=== PATIENT | male | born 1965 | race Caucasian/White ===

== ENCOUNTER 2018-01-21 06:51 | Day surgery (SDC) | payer BC ==
[~2018-01-21] VITALS: Ht 172.7 cm; Wt 82.7 kg
[~2018-01-21 06:51] MED LIST: ASCO500 PO; ASPI81TA11 PO; ATOR20TA PO; CO Q60CA2 PO; NORC7.5T PO; TAB-TAB PO
[2018-01-21 07:22] VITALS: BP 154/100; PULSE 88; RESP 20; TEMP 98.5; O2SAT 97
[2018-01-21] MEDS ORDERED: LACTATED RINGER'S 1000 ML INJ 1,000 ML IV SCH (07:30)
[2018-01-21] MEDS ORDERED: DIAZEPAM 5 MG TAB PO SCH (07:30)
[2018-01-21 07:43] LABS: AUTOMATED NEUTROPHIL # 3.4 TH/MM3 (1.8-7.7); BASOPHIL % 0.6 % (0.0-2.0); EOSINOPHIL % 0.8 % (0.0-4.0); HEMATOCRIT 45.3 % (39.0-51.0); HEMOGLOBIN 15.6 GM/DL (13.0-17.0); LYMPHOCYTE # 1.5 TH/MM3 (1.0-4.8); MEAN CELL VOLUME 99.5 FL (80.0-100.0); MEAN CORPUSCULAR HEMOGLOBIN 34.3 PG (27.0-34.0); MEAN CORPUSCULAR HGB CONC 34.5 % (32.0-36.0); MEAN PLATELET VOLUME 9.3 FL (7.0-11.0); MONO % 8.8 % (0.0-8.0); MONOCYTE # 0.5 TH/MM3 (0-0.9); NEUT % 62.8 % (16.0-70.0); PLATELET COUNT 149 TH/MM3 (150-450); RED BLOOD COUNT 4.55 MIL/MM3 (4.50-5.90); RED CELL DISTRIBUTION WIDTH 13.4 % (11.6-17.2); WHITE BLOOD COUNT 5.5 TH/MM3 (4.0-11.0)
[2018-01-21 07:53] LABS: INTERNATIONAL NORMALIZED RATIO 1.1 RATIO; PROTHROMBIN TIME - PATIENT 10.7 SEC (9.8-11.6)
[2018-01-21 08:01] LABS: BICARBONATE 24.1 MEQ/L (21.0-32.0); CALCIUM 9.5 MG/DL (8.5-10.1); CREATININE 0.82 MG/DL (0.60-1.30)
[2018-01-21] MEDS ORDERED: IOHEXOL 180 MG/ML 20 ML VIAL (for RAD DIAG) IT ONE (08:15)
--- NOTE | 2018-01-21 08:26 | PD.RAD ---
Post Procedure Progress Note Pre Procedure Diagnosis: (1) Back pain Post Procedure Diagnosis: (1) Back pain Procedure Date: January 21, 2018 Supervising Radiologist: Calixto Wolff Proceduralist/Assist: Gisel Erwin RT(R)(), RT Yamil(R)(CV) Anesthesia: Local Plan of Activity Patient to Unit: Other (CT) Patient Condition: Good See PACS Report for procedural detail/treatment Spinal Procedure Myelogram L3 Puncture Time: 08:15 Findings: Mild spinal stenosis at L3-4 and L4-5. CT to follow. Calixto Wolff MD January 21, 2018 08:26
[2018-01-21] MEDS ORDERED: ACETAMINOPHEN 325 MG TAB PO PRN (08:30)
[2018-01-21] MEDS ORDERED: ONDANSETRON HCL 4 MG/2 ML VIAL IV PUSH PRN (08:30)
[2018-01-21 09:20] VITALS: BP 135/72; PULSE 80; RESP 18; TEMP 98.1; O2SAT 95
--- NOTE | 2018-01-21 09:30 | RADRPT ---
EXAM DATE/TIME: 01/21/2018 08:56 [facility] COMPARISON: SPINE LUMBAR LATERAL ONLY, October 12, 2015, 8:17. INDICATIONS : Post myelogram. RADIATION DOSE: 21.89 CTDIvol (mGy) CT of thelumbar spine was performed post myelogram. MEDICAL HISTORY : None SURGICAL HISTORY : L4-L5 Laminectomy. ENCOUNTER: Initial ACUITY: 1 day PAIN SCALE: 0/10 LOCATION: lumbar spine. TECHNIQUE: Volumetric scanning of the lumbar spine was performed. Multiplanar reconstructions in the sagittal, coronal and oblique axial planes were performed. Using automated exposure control and adjustment of the mA and/or kV according to patient size, radiation dose was kept as low as reasonably achievable t o obtain optimal diagnostic quality images. DICOM format image data is available electronically for review and comparison. FINDINGS: There is excellent opacification of the thecal sac. T12-L1: The thecal sac has a normal diameter. No evidence of disc bulge or protrusion. The neural foramina are patent bilaterally. L1-L2: The thecal sac has a normal diameter. No evidence of disc bulge or protrusion. The neural foramina are patent bilaterally. L2-L3: The thecal sac has a normal diameter. No evidence of disc bulge or protrusion. The neural foramina are patent bilaterally. L3-L4: Mild generalized disc bulge is present causing some flattening of the intrathecal space. There is ve ry minimal bilateral neural foramina encroachment. L4-L5: Small right laminectomy defect present. L. Large central to right-sided disc protrusion involving th e right L4 root in the neural foramen and the right L5 root in its lateral recess. The left is uninv olved. Mild degenerative changes in the facets. L5-S1: Mild central bulging flattening the anterior thecal space centrally. Neural foramina are adequate. Mild degenerative changes are present facets. SI joints are normal. CONCLUSION: Large central to right-sided disc protrusion involving the right L4 root and the right L5 root. Balbir Rutherford MD FACR on January 21, 2018 at 9:22 Board Certified Radiologist. This report was verified electronically.
--- NOTE | 2018-01-21 09:43 | RADRPT ---
EXAM DATE/TIME: 01/21/2018 08:14 [facility] COMPARISON: No previous studies available for comparison. INDICATIONS : Patient with a history of lower back pain. MEDICAL HISTORY : High cholesterol SURGICAL HISTORY : Lumbar laminectomy ENCOUNTER: Initial ACUITY: 4-6 months PAIN SCORE: 5/10 LOCATION: Lower back LUMBAR PUNCTURE TIME: 0815 hours FLUORO TIME: 1.13 minutes IMAGE SERIES: 5 CONTRAST: 20 cc Omnipaque (iohexol) 180 ACCESS LEVEL: L3-4 MEDICATION(S): 5 mg Valium oral PROCEDURE : 1. Fluoroscopic guided lumbar puncture. 2. Lumbar myelogram. The risks, benefits and alternatives to the procedure were explained and verbal and written consent w as obtained. The site was prepped in sterile fashion. Full sterile technique was used, including ca p, mask, sterile gloves and gown and a large sterile sheet. Hand hygiene and 2% chlorhexidine and/or betadine/alcohol prep was utilized per protocol for cutaneous antisepsis. The skin and subcutaneous tissues were infiltrated with local anesthetic solution. With fluoroscopic guidance the lumbar thecal sac was punctured at level above and a diagnostic quanti ty of contrast is present in the subarachnoid space. Radiographs were obtained of the lumbar spine sh owing some degree of spinal stenosis at both L3-4 and L4-5. The patient tolerated procedure well and there were no complications. CT scan is to be performed for further evaluation. CONCLUSION: 1. Uncomplicated lumbar myelogram as above. 2. Some degree of spinal stenosis at both L3-4 and L4-5. CT scan is to be performed for further evalu ation. Calixto Wolff MD on January 21, 2018 at 9:38 Board Certified Radiologist. This report was verified electronically.
[2018-01-21 13:20] VITALS: BP 128/81; PULSE 72; RESP 16; O2SAT 98
== END 2018-01-21 14:00 | disposition home or self-care (01) ==
LOC: HROP 06:51 → HRIP 06:56 → HROP 14:00
PROVIDERS: ATTEND Orthopaedic Surgery Orthopaedic Surgery of the Spine
DX: M96.1 Postlaminectomy syndrome, not elsewhere classified (principal); M48.061 Spinal stenosis, lumbar region without neurogenic claudication; M51.26 Other intervertebral disc displacement, lumbar region; E78.00 Pure hypercholesterolemia, unspecified; Z01.818 Encounter for other preprocedural examination
CPT/HCPCS: 62304; 72131; 80048; 85025; 85610; 85730; J7120; Q9965

== ENCOUNTER 2018-01-24 08:48 | Emergency (ER) | payer BC ==
[2018-01-24] MEDS ORDERED: GADODIAMIDE PF 287 MG/ML 5 ML VIAL (for RAD MRI) IVCONTRAST ONE (08:49)
[2018-01-24 08:52] VITALS: BP 155/92; PULSE 99; RESP 20; TEMP 98.8; O2SAT 98
[2018-01-24] MEDS ORDERED: SODIUM CHLOR 0.9% 1000 ML INJ 1,000 ML IV ONE (09:30)
[2018-01-24] MEDS ORDERED: HYDROmorphone HCL PF 2 MG/ML VIAL IVS ONE ×2 (09:30→13:15)
[2018-01-24] MEDS ORDERED: PROCHLORPERAZINE INJ 10 MG/2 ML VIAL IV PUSH ONE (09:30)
[2018-01-24 09:42] VITALS: RESP 19; O2SAT 98
[2018-01-24 10:04] LABS: AUTOMATED NEUTROPHIL # 3.7 TH/MM3 (1.8-7.7); BASOPHIL % 0.7 % (0.0-2.0); EOSINOPHIL # 0.1 TH/MM3 (0-0.4); EOSINOPHIL % 1.1 % (0.0-4.0); HEMATOCRIT 43.3 % (39.0-51.0); HEMOGLOBIN 15.1 GM/DL (13.0-17.0); LYMPH % 21.5 % (9.0-44.0); LYMPHOCYTE # 1.2 TH/MM3 (1.0-4.8); MEAN CELL VOLUME 99.3 FL (80.0-100.0); MEAN CORPUSCULAR HEMOGLOBIN 34.7 PG (27.0-34.0); MEAN CORPUSCULAR HGB CONC 34.9 % (32.0-36.0); MEAN PLATELET VOLUME 9.5 FL (7.0-11.0); MONO % 8.6 % (0.0-8.0); MONOCYTE # 0.5 TH/MM3 (0-0.9); NEUT % 68.1 % (16.0-70.0); PLATELET COUNT 136 TH/MM3 (150-450); RED BLOOD COUNT 4.36 MIL/MM3 (4.50-5.90); RED CELL DISTRIBUTION WIDTH 13.3 % (11.6-17.2); WHITE BLOOD COUNT 5.4 TH/MM3 (4.0-11.0)
[2018-01-24 10:15] LABS: BICARBONATE 23.9 MEQ/L (21.0-32.0); CALCIUM 9.7 MG/DL (8.5-10.1); CREATININE 0.85 MG/DL (0.60-1.30)
--- NOTE | 2018-01-24 10:34 | PD ---
HPI Chief Complaint: Headache Time Seen by Provider: 09:07 Travel History International Travel<30 days: No Contact w/Intl Traveler<30days: No Traveled to known affect area: No History of Present Illness HPI This is a 52-year-old male with a history of chronic back pain, who status post myelogram 3 days ago, who presents today with clinic to headache, pain across his chest, and arm and leg pain. Patient denies any fevers, chills. He reports that he called his interventional radiologist service and told him his symptoms and I told him to come to the ER to be evaluated. The patient denies any muscle weakness but states that the pain makes it difficult to move and perform daily duties. He states he has had previous back surgery and was being worked up for possible worsening herniated disc. He reports his orthopedic surgeon does not wish want to perform another back surgery unless is absolutely necessary. There is no loss of bowel or bladder function. PFSH Past Medical History Cancer: No Cardiovascular Problems: No Diabetes: No Endocrine: No Genitourinary: No Hepatitis: No Hiatal Hernia: No Herniated Disk: Yes Immune Disorder: No Musculoskeletal: No Neurologic: No Psychiatric: No Respiratory: No Thyroid Disease: No Past Surgical History AICD: No Joint Replacement: No Pacemaker: No Social History Alcohol Use: No Tobacco Use: No Substance Use: No Allergies-Medications (Allergen,Severity, Reaction): Coded Allergies: No Known Allergies (Unverified Allergy, Unknown, 01/24/18) Reported Meds & Prescriptions Reported Meds & Active Scripts Active Arthrotec 75 (Diclofenac-Misoprostol) 75-0.2 Mg Tab 1 Tab PO BID Medrol Dosepak (Methylprednisolone) 4 Mg Dspk 4 Mg PO DIRECTED Per Pharmacist direction Lorcet (Hydrocodone-Acetaminophen) 5-325 mg Tab 1 Tab PO Q6H PRN Review of Systems Except as stated in HPI: all other systems reviewed are Neg General / Constitutional: No: Fever, Chills Eyes: No: Blurred Vision, Photophobia HENT: Positive: Headaches, No: Neck Stiffness, Neck Pain Cardiovascular: Positive: Chest Pain or Discomfort, No: Palpitations (Chest wall pain across his chest bilaterally.) Respiratory: No: Cough, Shortness of Breath Gastrointestinal: No: Nausea, Vomiting, Abdominal Pain Genitourinary: No: Dysuria, Incontinence Musculoskeletal: Positive: Myalgias, Pain (Bilateral upper extremities and lower extremities), No: Weakness Neurologic: Positive: Headache, No: Weakness, Change in Mentation, Paresthesia , Incontinence, Sensory Disturbance Physical Exam Narrative GENERAL: Well developed well-nourished male in no acute respiratory distress. SKIN: Focused skin assessment warm/dry. HEAD: Atraumatic. Normocephalic. EYES: No scleral icterus. No injection or drainage. ENT: No nasal bleeding or discharge. Mucous membranes pink and moist. NECK: Trachea midline. Supple. CARDIOVASCULAR: Regular rate and rhythm. No murmur appreciated. RESPIRATORY: No accessory muscle use. Clear to auscultation. Breath sounds equal bilaterally. GASTROINTESTINAL: Abdomen soft, non-tender, nondistended. Hepatic and splenic margins not palpable. MUSCULOSKELETAL: No obvious deformities. No clubbing. No cyanosis. No edema. NEUROLOGICAL: Awake and alert. No obvious cranial nerve deficits. Motor grossly within normal limits. Normal speech. BACK: No CVA tenderness. No rash. Tenderness of the posterior spine from T4 down to mid lumbar. No step-offs. PSYCHIATRIC: Appropriate mood and affect; insight and judgment normal. Data Data Last Documented VS Vital Signs Date Time Temp Pulse Resp B/P (MAP) Pulse Ox O2 Delivery O2 Flow Rate FiO2 01/24/18 17:22 60 16 127/80 (96) 98 Room Air 01/24/18 08:52 98.8 Orders Orders Complete Blood Count With Diff (01/24/18 09:25) Basic Metabolic Panel (Bmp) (01/24/18 09:25) Prothrombin Time / Inr (Pt) (01/24/18 09:25) Act Partial Throm Time (Ptt) (01/24/18 09:25) Iv Access Insert/Monitor (01/24/18 09:25) Ecg Monitoring (01/24/18 09:25) Oximetry (01/24/18 09:25) Hydromorphone Pf Inj (Dilaudid Pf Inj) (01/24/18 09:30) Prochlorperazine Inj (Compazine Inj) (01/24/18 09:30) Sodium Chlor 0.9% 1000 Ml Inj (Ns 1000 M (01/24/18 09:30) Hydromorphone Pf Inj (Dilaudid Pf Inj) (01/24/18 13:15) Ondansetron Odt (Zofran Odt) (01/24/18 13:30) Mri T Spine W & W/O Contrast (01/24/18 11:50) Mri L Spine W&W/O Contrast (01/24/18 11:50) Gadodiamide Pf Inj (Omniscan Pf Inj) (01/24/18 08:49) Labs Laboratory Tests Test 01/24/18 09:40 White Blood Count 5.4 TH/MM3 Red Blood Count 4.36 MIL/MM3 Hemoglobin 15.1 GM/DL Hematocrit 43.3 % Mean Corpuscular Volume 99.3 FL Mean Corpuscular Hemoglobin 34.7 PG Mean Corpuscular Hemoglobin Concent 34.9 % Red Cell Distribution Width 13.3 % Platelet Count 136 TH/MM3 Mean Platelet Volume 9.5 FL Neutrophils (%) (Auto) 68.1 % Lymphocytes (%) (Auto) 21.5 % Monocytes (%) (Auto) 8.6 % Eosinophils (%) (Auto) 1.1 % Basophils (%) (Auto) 0.7 % Neutrophils # (Auto) 3.7 TH/MM3 Lymphocytes # (Auto) 1.2 TH/MM3 Monocytes # (Auto) 0.5 TH/MM3 Eosinophils # (Auto) 0.1 TH/MM3 Basophils # (Auto) 0.0 TH/MM3 CBC Comment DIFF FINAL Differential Comment Prothrombin Time 10.0 SEC Prothromb Time International Ratio 1.0 RATIO Activated Partial Thromboplast Time 22.6 SEC Blood Urea Nitrogen 10 MG/DL Creatinine 0.85 MG/DL Random Glucose 145 MG/DL Calcium Level 9.7 MG/DL Sodium Level 139 MEQ/L Potassium Level 3.6 MEQ/L Chloride Level 104 MEQ/L Carbon Dioxide Level 23.9 MEQ/L Anion Gap 11 MEQ/L Estimat Glomerular Filtration Rate 94 ML/MIN [facility] Medical Decision Making Medical Screen Exam Complete: Yes Emergency Medical Condition: Yes Differential Diagnosis Abscess versus hematoma versus herniated disc. Narrative Course 52-year-old male status post myelogram 4 days prior, presents today with complaints of pain in his back. Patient also reported pain across his shoulders. Patient has no focal neuro deficits. MRI of the lumbar and thoracic spine showed no evidence of acute abscess or hematoma. The patient will be discharged with a prescription for Arthrotec. He will also be given a prescription for Medrol Dosepak and 10 Lorcet 5 mg tablets. He will be instructed to follow-up with Dieudonne Laughlin. Diagnosis Primary Impression: Back pain Additional Impression: Possible reaction to myelogram. Additional Instructions: Return if increased pain, weakness of extremities, numbness or tingling, loss of bowel or bladder function. Follow-up with Dr. Laughlin. Med/Other Pt SpecificInfo: Prescription(s) given Scripts Diclofenac-Misoprostol (Arthrotec 75) 75-0.2 Mg Tab 1 TAB PO BID for Pain Management, #30 TAB 0 Refills Prov: Vadim Bush MD 01/24/18 Methylprednisolone Dosepak (Medrol Dosepak) 4 Mg Dspk 4 MG PO DIRECTED, #1 DSPK 0 Refills Per Pharmacist direction Prov: Vadim Bush MD 01/24/18 Hydrocodone-Acetaminophen (Lorcet) 5-325 mg Tab 1 TAB PO Q6H Y for PAIN, #10 TAB 0 Refills Prov: Vadim Bush MD 01/24/18 Disposition: 01 DISCHARGE HOME Condition: Stable Vadim Bush MD January 24, 2018 10:34
[2018-01-24 13:11] VITALS: BP 132/82; PULSE 80; RESP 19; O2SAT 98
[2018-01-24] MEDS ORDERED: ONDANSETRON ODT 4 MG TAB PO ONE (13:30)
[2018-01-24 17:22] VITALS: BP 127/80; PULSE 60; RESP 16; O2SAT 98
--- NOTE | 2018-01-24 17:37 | RADRPT ---
EXAM DATE/TIME: 01/24/2018 16:30 [facility] COMPARISON: CT LUMBAR SPINE W/O CONTRAST, January 21, 2018, 8:56. INDICATIONS : Cephalgia after myelogram 3 days ago. CONTRAST: 16 cc Omniscan (gadodiamide) IV MEDICAL HISTORY : None. SURGICAL HISTORY : Laminectomy. ENCOUNTER: Initial ACUITY: 3 day PAIN SCORE: 0/10 LOCATION: back. TECHNIQUE: Multiplanar multisequence MRI of the lumbar spine was performed with and without contrast. FINDINGS: The most caudal appearing lumbar vertebra is numbered as L5. VERTEBRAE: Homogeneous signal. Normal alignment. CONUS: Normal level and configuration. POST CONTRAST: No abnormal areas of contrast enhancement are seen. T12-L1: The thecal sac has a normal diameter. No evidence of disc bulge or protrusion. The neural foramina are patent bilaterally. L1-L2: The thecal sac has a normal diameter. No evidence of disc bulge or protrusion. The neural foramina are patent bilaterally. L2-L3: The thecal sac has a normal diameter. No evidence of disc bulge or protrusion. The neural foramina are patent bilaterally. L3-L4: Previous lumbar puncture level. Normal in appearance with respect to epidural collection, abnormal en hancement or hemorrhage. Diffuse disc bulge with left paracentral disc protrusion. Mild effacement of the left anterior thecal sac. No significant neural foraminal stenosis. L4-L5: The previously noted right-sided eccentric posterior disc protrusion on CT corresponds to disruption of the annulus with fluid density posterior cystic protrusion on current exam. There is also mild enh ancement of the posterior disc region on postcontrast images. There is associated effacement of the r ight lateral recess with impingement of the descending right L5 nerve roots. There is mild narrowing of the right L4 neural foramina. L5-S1: Mild diffuse disc bulge. No significant central canal or neural foraminal stenosis. CONCLUSION: 1. No evidence for epidural hemorrhage, abscess or other competition related to recent lumbar punctur e. 2. Previously noted right-sided eccentric posterior disc protrusion on CT myelogram corresponds to di sruption of the annulus with fluid density posterior cystic protrusion of the disc. There is associat ed inflammation of the posterior disc space, likely inflammatory in etiology. This does not have the typical imaging appearance for discitis. This results in in effacement of the right lateral recess w ith impingement of the descending right L5 nerve roots. Kishan Caraballo MD on January 24, 2018 at 17:23 Board Certified Radiologist. This report was verified electronically.
--- NOTE | 2018-01-24 17:37 | RADRPT ---
EXAM DATE/TIME: 01/24/2018 16:30 [facility] COMPARISON: No previous studies available for comparison. INDICATIONS : Cephalgia after myelogram 3 days ago. CONTRAST: 16 cc Omniscan (gadodiamide) IV MEDICAL HISTORY : None. SURGICAL HISTORY : Laminectomy. ENCOUNTER: Initial ACUITY: 3 day PAIN SCORE: 0/10 LOCATION: back. TECHNIQUE: Multiplanar multisequence MRI of the thoracic spine was performed. FINDINGS: VERTEBRA: Normal vertebral body height. Homogeneous marrow signal. ALIGNMENT: Normal. CORD: Normal position and configuration. POST CONTRAST: No abnormal areas of contrast enhancement seen. There appears to be some broad based bulging at C7-T1 T1-T2: Normal. T2-T3: The thecal sac has a normal diameter. No evidence of disc bulge or protrusion. T3-T4: The thecal sac has a normal diameter. No evidence of disc bulge or protrusion. T4-T5: Tiny left paracentral bulging. The neural foramina are patent bilaterally. T5-T6: The thecal sac has a normal diameter. No evidence of disc bulge or protrusion. T6-T7: The thecal sac has a normal diameter. No evidence of disc bulge or protrusion. T7-T8: The thecal sac has a normal diameter. No evidence of disc bulge or protrusion. T8-T9: The thecal sac has a normal diameter. No evidence of disc bulge or protrusion. T9-T10: The thecal sac has a normal diameter. No evidence of disc bulge or protrusion. T10-T11: The thecal sac has a normal diameter. No evidence of disc bulge or protrusion. T11-T12: The thecal sac has a normal diameter. No evidence of disc bulge or protrusion. T12-L1: The thecal sac has a normal diameter. No evidence of disc bulge or protrusion. CONCLUSION: 1. Broad based bulging at C7-T1 2. Tiny left paracentral bulging at T4-T5 3. Otherwise, unremarkable examination. Saul Glover MD on January 24, 2018 at 17:32 Board Certified Radiologist. This report was verified electronically.
[2018-01-24] MEDS ORDERED: HYDR-3576 PO (18:54)
[2018-01-24] MEDS ORDERED: ARTHTAB5 PO (18:54)
[2018-01-24] MEDS ORDERED: MEDR4PAK PO (18:54)
[2018-01-24 19:27] VITALS: BP 125/79; PULSE 62; RESP 16; O2SAT 96
== END 2018-01-24 19:29 | disposition home or self-care (01) ==
LOC: NEPE 08:48
DX: M54.9 Dorsalgia, unspecified (principal); R07.9 Chest pain, unspecified
CPT/HCPCS: 72157; 72158; 80048; 85025; 85610; 85730; 96361; 96374; 96375; 96376; 99284; A9579; J0780; J1170; J7030